=== PATIENT | female | born 1975 ===

== ENCOUNTER 2019-02-01 07:12 | Inpatient (IN) | payer OTHER ==
[~2019-02-01] VITALS: Ht 152.4 cm; Wt 77.1 kg
[2019-02-01] MEDS ORDERED: PRENATAL TABLE1 EAC1 PO (08:48)
== END 2019-02-04 13:22 | disposition home or self-care (01) | DRG 785 ==
LOC: OBS/DEL 07:12 → LDR 08:06 → OB/GYN 08:06
PROVIDERS: ADMIT Obstetrics & Gynecology
PROC: 0UB70ZZ Excision of Bilateral Fallopian Tubes, Open Approach (ICD-10-PCS; 2019-02-01)
PROC: 4A1HXCZ Monitoring of Products of Conception, Cardiac Rate, External Approach (ICD-10-PCS; 2019-02-01)
PROC: 4A033R1 Measurement of Arterial Saturation, Peripheral, Percutaneous Approach (ICD-10-PCS; 2019-02-01)
PROC: 10D00Z1 Extraction of Products of Conception, Low, Open Approach (ICD-10-PCS; principal; 2019-02-01 08:00)
DX: O82 Encounter for cesarean delivery without indication (principal); O34.211 Maternal care for low transverse scar from previous cesarean delivery; Z30.2 Encounter for sterilization; Z3A.37 37 weeks gestation of pregnancy; Z37.0 Single live birth; Z22.330 Carrier of Group B streptococcus